=== PATIENT | male | born 1995 | race Caucasian/White ===

== ENCOUNTER 2016-11-06 20:37 | Emergency (ER) | payer SELFPAY ==
[~2016-11-06] VITALS: Ht 175.3 cm; Wt 86.3 kg
[2016-11-06 21:23] VITALS: BP 115/64
--- NOTE | 2016-11-06 23:24 | NUR ---
PT TAKEN TO BED 3
--- NOTE | 2016-11-06 23:30 | NUR ---
PATIENT PRESENTS TO ED WITH C/O RT FOOT PAIN AFTER STEPPING ON NAIL . PT DENIES N/V/D; SKIN IS PINK/WARM/DRY; AAOX4 WITH EVEN AND STEADY GAIT; LUNGS CLEAR BL; HR EVEN AND REGULAR; PT DENIES ANY FEVER, CP, SOB, OR COUGH AT THIS TIME; PATIENT STATES PAIN OF 8/10 AT THIS TIME; VSS; PATIENT POSITIONED FOR COMFORT; HOB ELEVATED; BEDRAILS UP X2; BED DOWN. ER MD MADE AWARE OF PT STATUS.
--- NOTE | 2016-11-06 23:44 | NUR ---
Dr. Cardenas evaluating patient at bedside.
[2016-11-06] MEDS ORDERED: LEVOFLOXACIN 500 MG TAB PO ONE (23:55)
[2016-11-06] MEDS ORDERED: IBUPROFEN 800 MG TAB PO ONE (23:55)
[2016-11-07 00:18] VITALS: BP 115/64
--- NOTE | 2016-11-07 00:18 | NUR ---
Patient discharged with v/s stable. Written and verbal after care instructions given and explained. Patient alert, oriented and verbalized understanding of instructions. Ambulatory with steady gait. All questions addressed prior to discharge. ID band removed. Patient advised to follow up with PMD. Rx of CIPRO AND MOTRIN given. Patient educated on indication of medication including possible reaction and side effects. Opportunity to ask questions provided and answered.
== END 2016-11-07 00:18 | disposition home or self-care (01) ==
LOC: MED 20:37
DX: S91.331A Puncture wound without foreign body, right foot, initial encounter (principal); W22.8XXA Striking against or struck by other objects, initial encounter; Y93.89 Activity, other specified; Y92.89 Other specified places as the place of occurrence of the external cause; Y99.8 Other external cause status
CPT/HCPCS: 73630; 90471; 90715; 99284

== ENCOUNTER 2018-06-26 05:55 | Emergency (ER) | payer OTHER ==
[~2018-06-26] VITALS: Ht 177.8 cm; Wt 95.3 kg
[2018-06-26 06:03] VITALS: BP 116/78
[2018-06-26 07:02] LABS: BASOPHILS % (AUTO) 0.1 % (0.0-2.0); EOSINOPHILS % (AUTO) 0.2 % (0.0-4.0); HEMATOCRIT 45.1 % (36-52); HEMOGLOBIN 15.1 g/dL (12.0-18.0); LYMPHOCYTES # (AUTO) 0.7 K/uL (2.0-11.5); MEAN CORPUSCULAR HEMOGLOBIN 30 pg (27-31); MEAN CORPUSCULAR HGB CONC 34 g/dL (33-37); MEAN CORPUSCULAR VOLUME 89.7 fL (80-94); MONOCYTES # (AUTO) 0.4 K/uL (0.8-1.0); MONOCYTES % (AUTO) 4.9 % (1.7-9.3); NEUTROPHILS # (AUTO) 6.4 K/uL (1.8-7.7); NEUTROPHILS % (AUTO) 85.8 % (42.2-75.2); PLATELET COUNT (AUTO) 264 K/uL (140-450); RED BLOOD CELL COUNT(AUTO) 5.03 MIL/uL (4.20-6.10); RED CELL DISTRIBUTION WIDTH 13.7 % (11.6-13.7); WHITE BLOOD COUNT (AUTO) 7.5 K/uL (4.8-10.8)
[2018-06-26] MEDS: ONDANSETRON 4 MG/2 ML VIAL IVP ONE (07:13)
[2018-06-26] MEDS: NACL 0.9% 1,000 ML IV ONE (07:14)
[2018-06-26] MEDS: DICYCLOMINE 20 MG/2 ML VIAL IM ONE (07:14)
[2018-06-26 07:23] LABS: ANION GAP 12.1 (8-16); CARBON DIOXIDE 28.8 mmol/L (21-32); POTASSIUM 3.9 mmol/L (3.5-5.1)
[2018-06-26 07:24] LABS: CREATININE 0.7 mg/dL (0.7-1.3)
[2018-06-26 07:31] LABS: ALBUMIN 4.1 g/dL (3.4-5.0)
[2018-06-26 08:32] VITALS: BP 112/58
== END 2018-06-26 08:31 | disposition home or self-care (01) ==
LOC: MED 05:55
DX: R11.10 Vomiting, unspecified (principal); R19.7 Diarrhea, unspecified; R10.9 Unspecified abdominal pain
CPT/HCPCS: 36415; 80053; 83690; 85025; 96361; 96372; 96374; 99283; J0500; J2405; J7030